=== PATIENT | female | born 1955 | race Caucasian/White ===

== ENCOUNTER 2021-09-09 05:37 | Day surgery (SDC) | payer MEDICARE, OTHER ==
[~2021-09-09] VITALS: Ht 152.4 cm; Wt 54.5 kg
[2021-09-09] MEDS ORDERED: LIDOCAINE 2% 11 ML JELLY TP ONE (05:38)
[2021-09-09] MEDS ORDERED: BENZOCAINE 20% 50 MCG/SPRAY 57 GM TP ONE (05:38)
[2021-09-09] MEDS ORDERED: LIDOCAINE 4% 50 ML SOLUTION TP ONE (05:38)
[2021-09-09 06:44] LABS: COVID AG,FIA SOURCE NASOPHARYNGEAL
[2021-09-09] MEDS ORDERED: SODIUM CHLORIDE 0.9% 1,000 ML IV ONE (07:00)
[2021-09-09] MEDS ORDERED: MIDAZOLAM HCL 2 MG/2 ML VIAL ONE (07:06)
[2021-09-09] MEDS ORDERED: FentaNYL CITRATE PF 100 MCG/2 ML VIAL ONE (07:07)
[2021-09-09] MEDS ORDERED: SODIUM CHLORIDE 0.9% 1,000 ML ONE (07:23)
[2021-09-09] MEDS ORDERED: LISI20TA24 PO (07:55)
[2021-09-09] MEDS ORDERED: CHOL500045 PO (07:55)
[2021-09-09] MEDS ORDERED: MONT-40 PO (07:55)
[2021-09-09] MEDS ORDERED: ATOR10TA69 PO (07:55)
[2021-09-09] MEDS ORDERED: ALOG25TA2 PO (07:55)
[2021-09-09] MEDS ORDERED: CETI10TA58 PO (07:55)
[2021-09-09] MEDS ORDERED: CALC-26 PO (07:55)
[2021-09-09] MEDS ORDERED: METO-416 PO (07:55)
[2021-09-09 07:56] LABS: GLUCOMETER DEV NAME(LOC) SDS.; GLUCOSE,POINT OF CARE 146 MG/DL (70-110)
[2021-09-09] MEDS ORDERED: MethylPREDNISolone SOD SUCC 125 MG/2 ML VIAL IVP ONE (08:15)
[2021-09-09] MEDS ORDERED: MethylPREDNISolone SOD SUCC 125 MG/2 ML VIAL ONE (08:58)
[2021-09-09] MEDS ORDERED: OXYGEN THERAPY IH SCH (20:00)
== END 2021-09-09 11:20 | disposition home or self-care (01) ==
LOC: SURGERY 05:37
PROVIDERS: ATTEND Internal Medicine Critical Care Medicine
DX: J38.4 Edema of larynx (principal); B37.0 Candidal stomatitis; I10 Essential (primary) hypertension; E11.9 Type 2 diabetes mellitus without complications; Z79.899 Other long term (current) drug therapy; Z98.890 Other specified postprocedural states
CPT/HCPCS: 31623; 88112; 82962; 87206; 87101; 87220; 87070; 88305; 88312; 31624; 71045; 87015; 87426; J3010; J2250; J2930; Q9967; J7030; C9803; Z7610